=== PATIENT | male | born 1940 | race Caucasian/White ===

== ENCOUNTER → 2017-10-09 08:07 | Outpatient (CLI) | payer OTHER, SELFPAY ==
[2017-10-09 10:49] LABS: Alanine Aminotransferase 36 IU/L (21-72); Aspartate Aminotransferase 38 IU/L (17-59); Blood Urea Nitrogen 12 mg/dL (9-20); Calcium 8.9 mg/dL (8.4-10.2); Carbon Dioxide 27 mmol/L (22-32); Chloride 105 mmol/L (98-107); Cholesterol 145 mg/dL (140-199); Estimated Glomerular Filt Rate > 60.0 mL/min (>60); Glucose 82 mg/dL (80-110); HDL Cholesterol 52 mg/dL (40-60); HEMOLYSIS < 15 (0-50); LDL Cholesterol Calculated 75 mg/dL (<100); Potassium 4.2 mmol/L (3.4-5.1); Sodium 141 mmol/L (137-145); Triglycerides 88 mg/dL (35-150)
== END ==
PROVIDERS: Family Provider Internal Medicine; PCP Internal Medicine; Visit Provider Internal Medicine
DX: E78.00 Pure hypercholesterolemia, unspecified (principal)
CPT/HCPCS: 36415; 80048; 80061; 84450; 84460

== ENCOUNTER → 2018-09-03 08:39 | Outpatient (CLI) | payer OTHER, SELFPAY ==
[2018-09-03 10:12] LABS: Alanine Aminotransferase 24 IU/L (21-72); Aspartate Aminotransferase 32 IU/L (17-59); Blood Urea Nitrogen 17 mg/dL (9-20); Calcium 9.2 mg/dL (8.4-10.2); Carbon Dioxide 30 mmol/L (22-32); Chloride 104 mmol/L (98-107); Cholesterol 159 mg/dL (140-199); Estimated Glomerular Filt Rate > 60.0 mL/min (>60); Glucose 92 mg/dL (80-110); HDL Cholesterol 56 mg/dL (40-60); HEMOLYSIS < 15 (0-50); LDL Cholesterol Calculated 85 mg/dL (<100); Potassium 4.5 mmol/L (3.4-5.1); Sodium 139 mmol/L (137-145); Triglycerides 88 mg/dL (35-150)
== END ==
PROVIDERS: Family Provider Internal Medicine; PCP Internal Medicine; Visit Provider Internal Medicine
DX: E78.00 Pure hypercholesterolemia, unspecified (principal); Z12.5 Encounter for screening for malignant neoplasm of prostate
CPT/HCPCS: 36415; 80048; 80061; 84450; 84460; G0103

== ENCOUNTER 2018-12-12 07:55 | Day surgery (SDC) | payer OTHER, SELFPAY ==
--- NOTE | 2018-12-12 | PATH_ITS ---
[facility] Accession Number: [id number] . 01 Material submitted: . cecum - CECUM BIOPSY . 01 Clinical history: . COLONOSCOPY; PERSONAL HISTORY OF COLONIC POLYPS . 02 Diagnosis: Cecum, Biopsy: Tubular adenoma, two fragments. MRV 12/13/2018 1053 Local . 02 Electronically signed: . Violeta Lozada MD, Pathologist NPI- [id number] . 01 Gross description: . CECUM BIOPSY: Received in formalin are multiple fragment(s) of francis, soft tissue measuring 0.1 x 0.1 x 0.1 cm to 0.3 x 0.2 x 0.2 cm which is entirely submitted and submitted entirely in 1 cassette(s) /[facility] [place]/12/2018 194 Local . 02 Pathologist provided ICD-10: D12.0 . 02 CPT . 613988 Performed at: 01 [facility] [address] [facility] [place], [place], [place] [id number] MD Frank Hernandez MD Phone: [phone] Performed at: 02 [facility] [address] [place], [place] [id number] MD Violeta Lozada MD Phone: [phone]
[2018-12-12 08:16] VITALS: BP 140/84; PULSE 67; RESP 15; TEMP 36.1; O2SAT 100
[2018-12-12] MEDS: SODIUM CHLORIDE 0.9% 1,000 ML 150 ML IV (08:25)
--- NOTE | 2018-12-12 09:29 | PM.HP.1 ---
History of Present Illness History of Present Illness Date Patient Seen: 12/12/18 Time Patient Seen: 09:29 Chief complaint: [id number] COLONOSCOPY Narrative: History of colon Patient History Social History household members: spouse Family & Social History Social History: household members spouse Meds Home Medications and Allergies Home Medications Medication Instructions Recorded Confirmed Type simvastatin 10 mg PO HS #0 07/01/17 12/12/18 History Allergies Allergy/AdvReac Type Severity Reaction Status Date / Time Sulfa (Sulfonamide Allergy Unknown Verified 12/12/18 08:14 Antibiotics) [SULFA (SULFONAMIDE ANTIBIOTICS)] Exam Vital Signs (past 8 hours): - 12/12/18 08:16 Temperature 97.0 F L Pulse Rate 67 Respiratory Rate 15 Blood Pressure 140/84 Pulse Oximetry 100 Oxygen Delivery Method Room Air Narrative Exam Narrative: Oropharynx free of lesions Chest clear to auscultation percussion Cardiac exam reveals no S3 or murmur Assessment & Plan Assessment & Plan narrative: History of colon polyps need for follow-up colonoscopy. Risks, benefits, alternatives have been explained. Atrial fibrillation by EKG. The to follow up with the Dr. Vazquez to discuss
--- NOTE | 2018-12-12 09:30 | PM.OP.ENDO ---
Operative Date/Time/Diagnoses Date of procedure: 12/12/18 Time of procedure: 09:30 Pre-op diagnosis: See indication and findings Procedure & Clinicians Study performed: Colonoscopy Same procedure as scheduled: Yes Indications: History of colon polyps Surgeon: Linad Negrete Procedure Notes Procedure in detail: After informed consent was obtained the patient was placed in left lateral decubitus position. The video colonoscope was introduced the rectum slowly advanced to the cecum. On slow withdrawal mucosa was carefully examined. Preparation was good. Scope was removed. The patient tolerated procedure well. Blood loss none Complications none Sedation Total sedation time of 15 minutes Versed 3 mg fentanyl 100 micro g IV titration Findings 1. 1.2 cm flat polyp in the cecum snared and removed completely 2. Otherwise negative colonoscopy to cecum We will be in touch regarding this polyp and this will determine whether will need follow-up in 3 years or 5 years. He should follow up with Dr. Vazquez to discuss his atrial fibrillation.
[2018-12-12 09:31] VITALS: BP 98/65; PULSE 75; RESP 14; TEMP 36.4; O2SAT 95
[2018-12-12] MEDS: fentaNYL 250 MCG/5 ML INJ IV (09:32)
[2018-12-12] MEDS: MIDAZOLAM 5 MG/5 ML VIAL IV (09:32)
[2018-12-12 09:35] VITALS: BP 102/62; PULSE 75; RESP 15; O2SAT 94
[2018-12-12 09:40] VITALS: BP 90/67; PULSE 61; RESP 16; O2SAT 95
[2018-12-12 09:53] VITALS: BP 107/64; PULSE 64; RESP 15; TEMP 36.3; O2SAT 95
[2018-12-12 09:59] VITALS: BP 100/67; PULSE 67; RESP 16; TEMP 36.3; O2SAT 97
== END 2018-12-12 10:10 | disposition home or self-care (01) ==
PROVIDERS: Family Provider Internal Medicine; PCP Internal Medicine; Visit Provider Internal Medicine Gastroenterology
PROC: 0DJD8ZZ Inspection of Lower Intestinal Tract, Via Natural or Artificial Opening Endoscopic (ICD-10-PCS; CPT 45378; principal; 2018-12-12 09:00)
DX: Z86.010 Personal history of colon polyps (principal); I48.91 Unspecified atrial fibrillation; D12.0 Benign neoplasm of cecum
CPT/HCPCS: 45385; 93005; 93010; J2250; J3010

== ENCOUNTER → 2019-03-05 06:34 | Outpatient (CLI) | payer OTHER, SELFPAY ==
--- NOTE | 2019-03-05 | DI.ECHO.S_ITS ---
[facility]---------+ [facility] +---------+ : : [address] : : : : [id number] : : : : Phone: [phone]+ Echocardiogram Report + + :Name: CHRISTIAN BARLOW Study Date: 03/05/2019 Height: 72 in : :[facility] Weight: 176 lb : : Gender: Male BSA: 2.0 m2 : :: 1940 Age: 78 yrs BP: 132/76 mmHg: :Reason For Study: Atrial fibrillation - paroxysmal : : Performed By: [facility] [place] Staff : :Referring: PRISCILLA FISHER : + + Interpretation Summary Afib with controlled rate. Normal sinus rhythm; mild concentric LVH; normal wall motion and LV systolic function. EF is 60-65%. Severe LA enlargement; mild RA enlargement. RV is borderline dilated with mildly reduced RV function. No significant valvular abnormalities. No prior study available for comparison. Procedure: A two-dimensional transthoracic echocardiogram with color flow and Doppler was performed. The study quality was technically adequate. There is no prior echocardiogram noted for this patient. The patient was in atrial fibrillation with controlled ventricular rate during the exam. Left Ventricle: The left ventricle is normal in size. There is mild concentric left ventricular hypertrophy. Left ventricular systolic function is normal. The ejection fraction is estimated to be 60-65%. Left ventricular wall motion is normal. Right Ventricle: The right ventricle is borderline dilated. Right ventricular systolic function is mildly reduced. Atria: The left atrium is severely dilated. The right atrium is mildly dilated. The interatrial septum is intact with no evidence for an atrial septal defect. Mitral Valve: The mitral valve leaflets appear mildly thickened, but open well. There is trace mitral regurgitation. Aortic Valve: The aortic valve is trileaflet. The aortic valve opens well. There is mild aortic regurgitation. Tricuspid Valve: The tricuspid valve is normal in structure and function. There is trace tricuspid regurgitation. Pulmonary artery pressures cannot be estimated because of the lack of a measurable TR jet velocity. Pulmonic Valve: The pulmonic valve is not well seen, but is grossly normal. There is mild pulmonic regurgitation. Great Vessels: The aortic root is mildly dilated. The ascending aorta is mildly enlarged. The pulmonary artery is normal size. The IVC is of normal diameter and collapses greater than 50% with a sniff. This suggests a low right atrial pressure of 3 mm Hg. Pericardium/ Pleura There is no pericardial effusion. There is no pleural effusion. MMode/2D Measurements & Calculations LVIDd: 3.9 cm LVOT diam: 2.1 cm LVIDs: 2.8 cm Ao root diam: 3.8 cm FS: 29.3 % Aortic Jxn: 3.5 cm EPSS: 0.59 cm asc Aorta Diam: 3.8 cm IVSd: 1.3 cm LVPWd: 1.2 cm LV walker. diameter/BSA (cm/m^2): 1.9 LV sys. diameter/BSA (cm/m^2): 1.4 LA A2 area: 28.1 cm2 RA long axis: 5.8 cm LA A4 area: 30.8 cm2 RA area: 17.7 cm2 LA length (vol): 6.5 cm RA vol: 46.1 ml LA vol: 112.7 ml RA : 22.8 ml/m2 LA vol index: 55.8 ml/m2 TAPSE: 1.5 cm Doppler Measurements & Calculations Ao V2 max: 70.6 cm/sec LVOT Max Ulices: 66.9 cm/sec Ao V2 mean: 49.2 cm/sec LV V1 max P.8 mmHg Ao max P.0 mmHg LV V1 VTI: 15.3 cm Ao mean P.1 mmHg SHEILA(I,D): 3.5 cm2 Ao V2 VTI: 14.5 cm SHEILA(V,D): 3.1 cm2 sev ratio: 1.1 SHEILA indexed to BSA (cm^2/m^2): 1.7 MV E max ulices: 72.5 cm/sec PA V2 max: 67.8 cm/sec MV A max ulices: 62.5 cm/sec PA V2 mean: 51.3 cm/sec MV E/A: 1.2 PA mean P.2 mmHg Med Peak E' Ulices: 8.1 cm/sec PA Accel Time: 0.09 sec E/E' med: 9.0 Lat Peak E' Ulices: 10.5 cm/sec E/E' lat: 6.9 E/e' average: 8.0 MV dec time: 0.17 sec SV(LVOT): 50.6 ml Electronically signed by: Mercedes Paulson M.D. on Reading Physician:03/06/2019 12:37 AM
== END ==
PROVIDERS: Family Provider Internal Medicine; PCP Internal Medicine; Visit Provider Internal Medicine
DX: I35.1 Nonrheumatic aortic (valve) insufficiency (principal); I37.1 Nonrheumatic pulmonary valve insufficiency; I77.89 Other specified disorders of arteries and arterioles; I48.0 Paroxysmal atrial fibrillation
CPT/HCPCS: 93306

== ENCOUNTER → 2019-05-15 08:27 | Outpatient (CLI) | payer MEDICARE, SELFPAY ==
[2019-05-15 09:24] LABS: Add Manual Diff / Slide Review NO; Basophils Absolute Auto 0 /uL (0-100); Basophils Percent Auto 0.7 % (0-2); Eosinophils Absolute Auto 100 /uL (0-450); Eosinophils Percent Auto 1.8 % (2-4); Lymphocytes Absolute Auto 2500 /uL (1100-4500); Lymphocytes Percent Auto 50.3 % (25-40); Mean Corpuscular HGB Conc 34.1 % (30-36); Mean Corpuscular Volume 99.6 fL (80-100); Monocytes Absolute Auto 600 /uL (0-900); Monocytes Percent Auto 11.3 % (3-14); Neutrophils Absolute Auto 1800 /uL (1500-7000); Neutrophils Percent Auto 35.9 % (50-75); Platelet Count 178 X10^3/uL (150-400); Red Blood Cell Count 4.72 X10^6/uL (4.5-5.9); White Blood Cell Count 5.1 X10^3/uL (4.5-11.0)
[2019-05-15 09:48] LABS: Magnesium 2.1 mg/dL (1.6-2.3)
[2019-05-15 10:19] LABS: Thyroid Stimulating Hormone 3.09 uIU/mL (0.47-4.68)
== END ==
PROVIDERS: Family Provider Internal Medicine; PCP Internal Medicine; Referring Provider Internal Medicine Cardiovascular Disease; Visit Provider Internal Medicine Cardiovascular Disease
DX: I48.0 Paroxysmal atrial fibrillation (principal); Z86.73 Personal history of transient ischemic attack (TIA), and cerebral infarction without residual deficits
CPT/HCPCS: 36415; 83735; 84443; 85025

== ENCOUNTER → 2019-06-26 08:41 | Outpatient (CLI) | payer MEDICARE, SELFPAY ==
--- NOTE | 2019-06-27 09:22 | PM.TREADMILL ---
Cardiac Stress Test Report Referral & Results Date Patient Seen: 06/27/19 Time Patient Seen: 09:23 Requesting provider: Lia Johnson Indication: atrial fibrillation Rest ECG: Atrial fibrillation with controlled ventricular rate Procedure Note: Standard Germán protocol, 6:16, 7.2 METS Good exercise capacity, TOMEKA -11% Normal hemodynamic response to exercise No chest pain or anginal symptoms No ST changes with exercise; no ectopy Impression: normal exercise stress test Nuclear images pending Please note: Actual ECG tracings can be found in the PACS system.
--- NOTE | 2019-06-27 13:18 | DI.NM.S_ITS ---
DATE OF SERVICE: 06/26/2019 PROCEDURE: Exercise perfusion study INDICATION: Atrial fibrillation, hyperlipidemia RADIOPHARMACEUTICAL: 26.6 millicurie technetium-99m Myoview IV was injected at stress and 24.1 millicurie technetium-99m Myoview IV was injected at rest. CARDIAC STRESS: The patient underwent exercise perfusion study under the supervision of an attending staff. The patient walked on Germán protocol for 6 minutes and 16 seconds, achieved 96 percent of target heart rate, 7 METS of workload, functional aerobic impairment of -11 percent. Baseline rhythm was atrial fibrillation with controlled ventricular rate with underlying right bundle branch block. During stress, there were no convincing ischemic changes. No new significant arrhythmias. No chest pain or anginal symptoms. The patient remained hemodynamically stable. The patient had normal blood pressure response. RAW DATA: There is increased subdiaphragmatic activity. GATED STUDY: Stress LV ejection fraction 59 percent without any obvious wall motion abnormalities. Resting end-diastolic volume 102 mL. No transient ischemic dilatation. TID ratio 1.07, which is within normal limits. Lung-heart ratio 0.30 which is within normal limits. MYOCARDIAL PERFUSION: Stress supine and resting supine images revealed small to moderate sized, mild to moderately decreased perfusion of distal inferior wall and inferior apex, which got significantly improved during prone images, suggestive of diaphragmatic tissue attenuation artifact. No convincing ischemia or infarction pattern. CONCLUSION: I will call this study likely a normal myocardial perfusion study with evidence of diaphragmatic tissue attenuation artifact, which got improved during prone images. No convincing ischemia or infarction pattern during prone images. The patient has underlying AFib. Good exercise tolerance. Overall preserved LV function. This is a low risk myocardial perfusion scan. Remi Rosenberg - LAURA/bryan/chasity doc#: [id number]/job#: [id number] dd: 06/27/2019 12:53:00 dt: 06/27/2019 13:03:00 DICTATING MD/COPIES TO: Lia Johnson MD COPIES MNE: DELILAH;
== END ==
PROVIDERS: Family Provider Internal Medicine; PCP Internal Medicine; Referring Provider Nurse Practitioner; Visit Provider Nurse Practitioner
DX: I48.0 Paroxysmal atrial fibrillation (principal); E78.5 Hyperlipidemia, unspecified
CPT/HCPCS: 78452; 93017; A9502

== ENCOUNTER → 2020-06-09 08:27 | Outpatient (CLI) | payer OTHER, SELFPAY ==
[2020-06-09 10:27] LABS: Alanine Aminotransferase 21 IU/L (<50); Albumin 3.6 g/dL (3.5-5.0); Albumin Globulin Ratio 1.4 (1.0-2.8); Alkaline Phosphatase 69 U/L (38-126); Aspartate Aminotransferase 35 IU/L (17-59); BUN Creatinine Ratio 12.2 (6-22); Bilirubin Total 1.3 mg/dL (0.2-1.3); Blood Urea Nitrogen 14 mg/dL (9-20); Calcium 9.2 mg/dL (8.4-10.2); Carbon Dioxide 29 mmol/L (22-32); Chloride 105 mmol/L (98-107); Cholesterol 143 mg/dL (140-199); Estimated Glomerular Filt Rate > 60.0 mL/min (>60); Globulin 2.6 g/dL (1.7-4.1); Glucose 87 mg/dL (80-110); HDL Cholesterol 53 mg/dL (40-60); HEMOLYSIS < 15 (0-50); LDL Cholesterol Calculated 73 mg/dL (<100); Potassium 4.3 mmol/L (3.4-5.1); Sodium 139 mmol/L (137-145); Total Protein 6.2 g/dL (6.3-8.2); Triglycerides 86 mg/dL (35-150)
== END ==
PROVIDERS: Family Provider Internal Medicine; PCP Internal Medicine; Referring Provider Internal Medicine; Visit Provider Internal Medicine
DX: E78.5 Hyperlipidemia, unspecified (principal)
CPT/HCPCS: 36415; 80053; 80061

== ENCOUNTER → 2020-07-14 18:45 | Outpatient (ROUT) | payer OTHER, SELFPAY ==
[2020-07-16 08:09] LABS: PSA Free % 22.1 % (.); PSA, Total 1.9 ng/mL (0.0-4.0)
== END ==
PROVIDERS: Family Provider Internal Medicine; PCP Internal Medicine; Visit Provider Internal Medicine
DX: Z12.5 Encounter for screening for malignant neoplasm of prostate (principal)
CPT/HCPCS: 84153; 84154